=== PATIENT | female | born 1970 | race African-American/Black ===

== ENCOUNTER 2017-01-25 16:17 | Emergency (ER) | payer OTHER | END 2017-01-25 17:59 | disposition left against medical advice (07) | LOC: ER 16:17 | DX: Z53.21 Procedure and treatment not carried out due to patient leaving prior to being seen by health care provider (principal) | CPT/HCPCS: 99211 ==

== ENCOUNTER 2017-01-31 10:23 | Emergency (ER) | payer OTHER | END 2017-01-31 11:58 | disposition home or self-care (01) | LOC: ER 10:23 | DX: M54.5 Low back pain (principal); G89.29 Other chronic pain; M25.561 Pain in right knee; M25.562 Pain in left knee; I10 Essential (primary) hypertension; E03.9 Hypothyroidism, unspecified; M19.90 Unspecified osteoarthritis, unspecified site; F17.210 Nicotine dependence, cigarettes, uncomplicated | CPT/HCPCS: 87400; 96372; 99283-25 ==

== ENCOUNTER 2017-02-10 14:58 | Emergency (ER) | payer OTHER | END 2017-02-10 16:34 | disposition home or self-care (01) | LOC: ER 14:58 | DX: E66.01 Morbid (severe) obesity due to excess calories (principal); M17.0 Bilateral primary osteoarthritis of knee; Z98.84 Bariatric surgery status; Z79.899 Other long term (current) drug therapy; Z79.891 Long term (current) use of opiate analgesic | CPT/HCPCS: 96372; 99282-25; J1170 ==

== ENCOUNTER 2017-03-02 07:19 | Emergency (ER) | payer OTHER | END 2017-03-02 08:11 | disposition home or self-care (01) | LOC: ER 07:19 | DX: M19.90 Unspecified osteoarthritis, unspecified site (principal); G89.29 Other chronic pain; M25.561 Pain in right knee; M25.562 Pain in left knee; E07.9 Disorder of thyroid, unspecified; Z79.891 Long term (current) use of opiate analgesic; Z79.899 Other long term (current) drug therapy | CPT/HCPCS: 96372; 99282-25 ==